=== PATIENT | male | born 1950 | race Caucasian/White ===

== ENCOUNTER → 2023-12-08 | Day surgery (SDC) | payer MEDICARE ==
[2023-11-30 10:40] LABS: BASOPHILS # (AUTO) 0.1 (0.0-0.1); BASOPHILS % 0.6 % (0.0-1.0); EOSINOPHILS # (AUTO) 0.2 (0.0-0.4); EOSINOPHILS % 2.3 % (0.0-6.0); HEMATOCRIT 48.3 % (38.2-49.6); HEMOGLOBIN 16.2 g/dL (14.0-18.0); LYMPHOCYTES # (AUTO) 2.2 (1.0-3.2); MEAN CORPUSCULAR HEMOGLOBIN 31.8 pg (28-32); MEAN CORPUSCULAR HGB CONC 33.5 g/dL (31-35); MEAN CORPUSCULAR VOLUME 94.9 fL (81-99); MONOCYTES % 11.3 % (4.4-11.3); NEUTROPHILS # (AUTO) 5.7 (2.1-6.9); NEUTROPHILS % 61.5 % (38.7-80.0); PLATELET COUNT 311 x10e3/uL (140-360); RED BLOOD COUNT 5.09 x10e6/uL (4.3-5.7); RED CELL DISTRIBUTION WIDTH 12.6 % (11.7-14.4); WHITE BLOOD COUNT 9.24 x10e3/uL (4.8-10.8)
[2023-11-30 11:34] LABS: ANION GAP 15.5 mmol/L (8-16); CALCIUM 9.7 mg/dL (8.4-10.2); CREATININE, SERUM 1.24 mg/dL (0.72-1.25); POTASSIUM 4.5 mmol/L (3.5-5.1)
[~2023-12-08] MED LIST: ACETAMINOPHEN 1000 MG/100 ML IV ONE; AMLODIPINE BESYL5 MG PO; BUPIVACAINE HCL 0.5% INJ 30 ML VIAL INJ ONE; CRESTOR40 MG PO; FENTANYL CITRATE/PF 100MCG/2 ML INJ ONE; HYDROCODON-ACE1 EA12 PO; LIDOCAINE 1% W/EPINEPHRINE 20 ML VIAL ONE; LIDOCAINE HCL 2% LOCAL INJ 5 ML SDV VIAL INJ ONE; MIDAZOLAM HCL 2 MG/2 ML VIAL ONE; MUPIROCIN 2% OINT 22 GM TUBE ONE; OZEMPIC1 MG/0.71 SC; PROPOFOL IV EMULSION 10 MG/ML 20 ML VIAL ONE
[2023-12-08] MEDS: LACTATED RINGER'S 1,000 ML ONE (06:24)
[2023-12-08 07:33] VITALS: TEMP 97.6
[2023-12-08 07:45] VITALS: BP 118/75; PULSE 55; RESP 16; O2SAT 97
== END | disposition home or self-care (01) ==
LOC: OR 05:34
PROVIDERS: ATTEND Plastic Surgery
DX: M15.1 Heberden's nodes (with arthropathy) (principal); M67.442 Ganglion, left hand; B07.9 Viral wart, unspecified; G47.33 Obstructive sleep apnea (adult) (pediatric); E11.9 Type 2 diabetes mellitus without complications; I10 Essential (primary) hypertension; E78.5 Hyperlipidemia, unspecified; Z01.810 Encounter for preprocedural cardiovascular examination; Z01.812 Encounter for preprocedural laboratory examination; Z01.818 Encounter for other preprocedural examination; Z79.85 Long-term (current) use of injectable non-insulin antidiabetic drugs; Z79.899 Other long term (current) drug therapy
CPT/HCPCS: 11420; 26236; 36415 ×2; 71046; 80048; 82948; 85025; 93005; J0131; J0690; J2001; J2250; J2704; J3010; J7121